=== PATIENT | male | born 1990 | race Caucasian/White ===

== ENCOUNTER 2017-03-01 14:45 | Emergency (ER) | payer SELFPAY ==
--- NOTE | 2017-03-01 15:15 | EDM.PDOC ---
ED HPI GENERAL MEDICAL PROBLEM - General Chief Complaint: Upper Extremity Injury/Pain Stated Complaint: RT SHOULDER INJURY Time Seen by Provider: 03/01/17 15:14 - History of Present Illness INITIAL COMMENTS - FREE TEXT/NARRATIVE: 26-year-old male comes to the emergency room for syncopal type episode and right shoulder injury. Shortly before arrival to the emergency department the patient became lightheaded and then passed out landing on his right shoulder. He quickly awoke and on his own but I witnessed a state that he became lightheaded then fell onto his right side. His blood sugar was checked at the scene and was 90. He had lunch about 15 minutes prior to this episode. The patient has not had problems like this in the past. His family history of diabetes type IIbut patient has not been having problems like this in the past. He has no family history of heart arrhythmia or people passing out. 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 He thinks he's been drinking adequate fluid. The patient did not have breakfast this morning but he seldom does. 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 [No Known Home Meds] 03/01/17 [History] Social & Family History - Tobacco Use Smoking Status *Q: Never Smoker - Caffeine Use Caffeine Use: Reports: Soda - Recreational Drug Use Recreational Drug Use: Yes Drug Use in Last 12 Months: Yes Recreational Drug Type: Reports: Marijuana/Hashish Recreational Drug Use Frequency: Socially Review of Systems - Review of Systems Review Of Systems: See Below Constitutional: Reports: No Symptoms Ears: Reports: No Symptoms Nose: Reports: No Symptoms Mouth/Throat: Reports: No Symptoms Respiratory: Reports: No Symptoms Cardiovascular: Reports: Syncope. Denies: Chest Pain, Edema GI/Abdominal: Reports: No Symptoms Genitourinary: Reports: No Symptoms Musculoskeletal: Reports: Shoulder Pain Skin: Reports: No Symptoms Neurological: Reports: Syncope. Denies: Confusion, Dizziness, Headache, Numbness, Paresthesia, Pre-Existing Deficit, Seizure, Tingling, Tremors, Trouble Speaking, Difficulty Walking, Weakness Psychiatric: Reports: No Symptoms Trauma Exam - Physical Exam Exam: See Below Exam Limited By: No Limitations General Appearance: Reports: Alert, No Apparent Distress Head: Reports: Atraumatic, Normocephalic. Denies: Scalp Lacerations, Scalp Swelling, Scalp Abrasions, Scalp Ecchymosis, Scalp Hematoma, Scalp Tenderness, Mayer's Sign, Facial Abrasions, Facial Ecchymosis, Facial Lacerations, Facial Swelling, Sinus Tenderness, Facial Tenderness, [place]accoon Eyes Eyes: Bilateral Eye: EOMI, Normal Inspection, PERRL Ears: Reports: Normal External Exam, Normal Canal, Hearing Grossly Normal, Normal TMs Nose: Reports: Normal Inspection, Normal Mucousa, No Blood Neck: Reports: Non-Tender, Full Range of Motion, Normal Alignment, Normal Inspection Respiratory Exam: Reports: No Respiratory Distress, Lungs Clear, Normal Breath Sounds Cardiovascular: Reports: Regular Rate, Rhythm, No Edema, No Murmur GI/Abdominal: Reports: Normal Bowel Sounds, Soft, Non-Tender Back: Reports: Full Range of Motion. Denies: Normal Inspection, CVA Tenderness (R), CVA Tenderness (L), Muscle Spasm, Vertebral Tenderness Extremities: Other (he has some right shoulder discomfort with some distal clavicle discomfort neurovascular status of the hand is normal) Neurologic: Reports: bag filler II-XII nml As Tested, No Motor/Sensory Deficits, Normal Mood/Affect, Oriented x 3, Other (neuro exam limited somewhat because of shoulder pain). Denies: Abnormal Cerebellar Tests, Abnormal Gait, Aphasia, Facial Droop, Motor Weakness, Sensory Deficit Skin: Reports: Normal Color, Warm/Dry - [place] Coma Score Best Eye Response ([place]): (4) Open Spontaneously Best Verbal Response ([place]): (5) Oriented Best Motor Response ([place]): (6) Obeys Commands EKG INTERPRETATION EKG Date: 03/01/17 Rhythm: other (has a sinus arrhythmia) [place]: normal P-wave: present QRS: normal ST-T: normal QT: normal Comparison: NA - no prior EKG EKG Interpretation Comments: patient has been watched on the monitor he has a sinus arrhythmia no other ectopy EKG otherwise normal Course - Vital Signs Last Recorded V/S: Last Vital Signs Temp 36.4 C 03/01/17 15:03 Pulse 74 03/01/17 15:03 Resp 18 03/01/17 15:03 BP 123/74 03/01/17 15:03 Pulse Ox 100 03/01/17 15:03 - Orders/Labs/Meds Orders: Active Orders 24 hr Category Date Time Status EKG 12 Lead [EKG Documentation Completion] [RC] STAT Care 03/01/17 18:25 Active Clavicle Rt [CR] Stat Exams 03/01/17 15:39 Taken Shoulder Comp Rt [CR] Stat Exams 03/01/17 15:39 Taken Labs: Laboratory Tests 03/01/17 03/01/17 Range/Units 15:50 15:50 WBC 11.60 H (4.23-9.07) K/mm3 RBC 4.28 L (4.63-6.08) M/mm3 Hgb 13.4 L (13.7-17.5) gm/L Hct 38.7 L (40.1-51.0) % MCV 90.4 (79.0-92.2) fl MCH 31.3 (25.7-32.2) pg MCHC 34.6 (32.2-35.5) g/dl RDW Std Deviation 42.6 (35.1-43.9) fL Plt Count 194 (163-337) K/mm3 MPV 11.1 (9.4-12.3) fl Neutrophils % (Manual) 75 H (40-60) % Band Neutrophils % 0 (0-10) % Lymphocytes % (Manual) 22 (20-40) % Atypical Lymphs % 0 % Monocytes % (Manual) 3 (2-10) % Eosinophils % (Manual) 0 L (0.8-7.0) % Basophils % (Manual) 0 L (0.2-1.2) Platelet Estimate Adequate Plt Morphology Comment Normal RBC Morph Comment Normal Sodium 142 (136-145) mEq/L Potassium 3.9 (3.5-5.1) mEq/L Chloride 108 H (98-107) mEq/L Carbon Dioxide 29 (21-32) mEq/L Anion Gap 8.9 (5-15) BUN 10 (7-18) mg/dL Creatinine 0.9 (0.7-1.3) mg/dL Est Cr Clr Drug Dosing 155.38 mL/min Estimated GFR (MDRD) > 60 (>60) mL/min BUN/Creatinine Ratio 11.1 L (14-18) Glucose 84 (74-106) mg/dL Calcium 9.3 (8.5-10.1) mg/dL Magnesium 1.6 L (1.8-2.4) mg/dl Meds: Medications Discontinued Medications Generic Name Dose Route Start Last Admin Trade Name Rashaad PRN Reason Stop Dose Admin Lactated Ringer's 1,000 mls @ 999 mls/hr 03/01/17 15:33 03/01/17 15:56 Ringers, Lactated IV 03/01/17 16:33 999 mls/hr .BOLUS ONE Administration - Re-Assessments/Exams Free Text/Narrative Re-Assessment/Exam: 03/01/17 18:27 this patient has received a liter of fluid and feels much better. His arm is a little sore x-ray exam of the clavicle and shoulder are negative for acute fracture dislocation cannot exclude a mild a.c. separation and his exam is consistent with this. Patient will be placed in a sling. For evaluation for his near syncopal or syncopal event laboratory evaluation is unrevealing he has a sinus arrhythmia which is probably normal given his age and telemetry does not show any tachycardia or prolonged bradycardia did discuss a Holter monitor he would like to hold off on this. His white count slightly elevated 75% segs no bands this could be a stress reaction. Chemistries magnesium for low 1.6 he will start [id number] magnesium supplements and is willing to followup in the clinic Departure - Departure Time of Disposition: 18:29 Disposition: Home, Self-Care 01 Clinical Impression: Syncope and collapse, Acromioclavicular separation, type 1 - Discharge Information Forms: ED Department Discharge Additional Instructions: return to the emergency room if any questions or problems. 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 Followup in the hospital clinic early next week. [id number]. Wear the sling to help support your arm to minimize shoulder discomfort where as needed. - My Orders Last 24 Hours: My Active Orders 03/01/17 15:39 Clavicle Rt [CR] Stat Shoulder Comp Rt [CR] Stat 03/01/17 18:25 EKG 12 Lead [EKG Documentation Completion] [RC] STAT - Assessment/Plan Last 24 Hours: My Active Orders 03/01/17 15:39 Clavicle Rt [CR] Stat Shoulder Comp Rt [CR] Stat 03/01/17 18:25 EKG 12 Lead [EKG Documentation Completion] [RC] STAT
[2017-03-01] MEDS ORDERED: Lactated Ringers 1,000 ML IV ONE (15:33)
[2017-03-01 19:05] VITALS: BP 124/86
--- NOTE | 2017-03-02 06:22 | CR ---
Right clavicle: Two views of the right clavicle were obtained. No fracture or other abnormality is seen. Impression: 1. No abnormality is seen on two-view right clavicle study. Diagnostic code #1
--- NOTE | 2017-03-02 06:22 | CR ---
Right shoulder: Three views of the right shoulder were obtained. Glenohumeral joint and acromioclavicular joint appear unremarkable. No fracture or other bony abnormality is seen. Impression: 1. No abnormality is identified on three-view right shoulder study. Diagnostic code #1
== END 2017-03-01 18:50 | disposition home or self-care (01) ==
LOC: JD.ED 14:45
DX: R55 Syncope and collapse (principal); S43.101A Unspecified dislocation of right acromioclavicular joint, initial encounter; Z88.8 Allergy status to other drugs, medicaments and biological substances; X58.XXXA Exposure to other specified factors, initial encounter
CPT/HCPCS: 36415; 73000; 73030; 80048; 83735; 85025; 93005; 96360; 96361; 99284; J7120; 99285

== ENCOUNTER 2020-03-22 13:51 | Emergency (ER) | payer OTHER ==
[2020-03-22 14:10] VITALS: BP 128/68; PULSE 76
[2020-03-22] MEDS ORDERED: Diphtheria,Pertussis(Acell),Tetanus Vaccine 0.5 ML Syringe IM ONE (14:36)
--- NOTE | 2020-03-22 15:12 | CR ---
Right hand: 4 views the right hand were obtained. Comparison: No prior hand study. Tuft fracture is seen within the fourth finger. No additional fracture or other bony abnormality is appreciated. Impression: 1. Tuft fracture within the fourth finger. 2. No additional abnormality is seen. Diagnostic code #2 Study was dictated in MDT
--- NOTE | 2020-03-22 15:13 | EDM.PDOC ---
ED HPI GENERAL MEDICAL PROBLEM - General Chief Complaint: Upper Extremity Injury/Pain Stated Complaint: RT HAND INJURY Time Seen by Provider: 03/22/20 14:33 Source of Information: Reports: Patient History Limitations: Reports: No Limitations - History of Present Illness INITIAL COMMENTS - FREE TEXT/NARRATIVE: The patient presents with right hand injury. This happened about 15 minutes prior to arrival. He was moving the forks on a fork lift and one of them crushed his right hand. He mostly got crushed on his 3rd and 4th finger. He does have a superficial laceration to the 4th finger. He has good sensation and capillary refill distally. He is right handed. His tetanus he is not sure if it is up to date. Onset: Sudden Duration: Minutes: Location: Reports: Upper Extremity, Right (hand) Quality: Reports: Sharp Severity: Moderate Improves with: Reports: Immobilization Worsens with: Reports: Movement Context: Reports: Trauma (crushed by forks on a fork lift) Associated Symptoms: Reports: No Other Symptoms Right Hand Pain Score (Numeric/FACES): 6 - Related Data Allergies Allergy/AdvReac Type Severity Reaction Status Date / Time diphenhydramine Allergy Severe Swelling Verified 03/22/20 14:03 [From Benadryl] Home Meds: Home Meds . [No Known Home Meds] 03/01/17 [History] Past Medical History - Past Health History Medical/Surgical History: Denies Medical/Surgical History Social & Family History - Family History Family Medical History: Noncontributory - Tobacco Use Smoking Status *Q: Former Smoker Used Tobacco, but Quit: Yes Month/Year Tobacco Last Used: 03/2015 - Caffeine Use Caffeine Use: Reports: Coffee, Energy Drinks, Soda, Tea - Recreational Drug Use Recreational Drug Use: Yes Drug Use in Last 12 Months: Yes Recreational Drug Type: Reports: Marijuana/Hashish Recreational Drug Use Frequency: Weekly Review of Systems - Review of Systems Review Of Systems: See Below Constitutional: Reports: No Symptoms Eyes: Reports: No Symptoms Ears: Reports: No Symptoms Nose: Reports: No Symptoms Mouth/Throat: Reports: No Symptoms Respiratory: Reports: No Symptoms Cardiovascular: Reports: No Symptoms GI/Abdominal: Reports: No Symptoms Genitourinary: Reports: No Symptoms Musculoskeletal: Reports: Other (right hand pain) ED EXAM, GENERAL - Physical Exam Exam: See Below Exam Limited By: No Limitations General Appearance: Alert, No Apparent Distress Ears: Normal External Exam Nose: Normal Inspection Head: Atraumatic, Normocephalic Neck: Normal Inspection Respiratory/Chest: No Respiratory Distress Extremities: Other (Pain upon palpation with edema to the right 3rd and 4th digits. The 4th digit has a superficial laceration that is about 0.25cm. Good sensation and capillary refill distally.) ED TRAUMA EXTREMITY PROCEDURES - Laceration/Wound Repair Right Digit - 4th (Ring) Lac/Wound Length In cm: 0.2 Appearance: Superficial, Irregular, Mildly Contaminated Distal NVT: Neuro & Vascular Intact, No Tendon Injury Skin Prep: Saline Closed With: Wound Adhesive - Splinting Right 4th Digit Splint Site: right 4th finger Pre-Procedure NV Status: Normal Post-Procedure NV Status: Normal Splint Material: Aluminum-Foam Splint Design: Extensor Applied & Form Fitted By: Provider Provider Post-Splint Application NV Check: NV Status Normal, Good Position Complications: No Course - Vital Signs Last Recorded V/S: Last Vital Signs Temp 96.6 F L 03/22/20 13:58 Pulse 76 03/22/20 13:58 Resp 16 03/22/20 13:58 BP 128/68 03/22/20 13:58 Pulse Ox 97 03/22/20 13:58 - Orders/Labs/Meds Orders: Active Orders 24 hr Category Date Time Status Vaccines to be Administered [RC] PER UNIT ROUTINE Care 03/22/20 14:36 Active Meds: Medications Discontinued Medications Generic Name Dose Route Start Last Admin Trade Name Freq PRN Reason Stop Dose Admin Diphtheria/Tetanus/Acell Pertussis 0.5 ml 03/22/20 14:36 03/22/20 15:10 Adacel IM 03/22/20 14:37 0.5 ml .ONCE ONE Administration - Re-Assessments/Exams Free Text/Narrative Re-Assessment/Exam: 03/22/20 15:13 I updated his tetanus and he has a distal phalynx fracture to the 4th digit. 03/22/20 15:23 I use adhesive to close the wound and I splinted the fracture with an aluminum splint. Departure - Departure Time of Disposition: 15:25 Disposition: Home, Self-Care 01 Condition: Good Clinical Impression: Laceration of right ring finger Qualifiers: Encounter type: initial encounter Damage to nail status: without damage Foreign body presence: without foreign body Qualified Code(s): S61.214A - Laceration without foreign body of right ring finger without damage to nail, initial encounter Finger fracture, right Qualifiers: Encounter type: initial encounter Finger: ring finger Fracture type: closed Phalanx: distal Fracture alignment: nondisplaced Qualified Code(s): S62.664A - Nondisplaced fracture of distal phalanx of right ring finger, initial encounter for closed fracture - Discharge Information *PRESCRIPTION DRUG MONITORING PROGRAM REVIEWED*: Not Applicable *COPY OF PRESCRIPTION DRUG MONITORING REPORT IN PATIENT CAPRI: Not Applicable Referrals: PCP,None [Primary Care Provider] - Forms: ED Department Discharge Additional Instructions: The adhesive should wear off within a week to 10 days. Ice your finger for 15 minutes 3 times per day for 2 days. Take tylenol or motrin for pain. Wear the splint for a couple weeks. Please return if you are worse. Sepsis Event Note (ED) - Evaluation Sepsis Screening Result: No Definite Risk - Focused Exam Vital Signs: Vital Signs Temp Pulse Resp BP Pulse Ox 03/22/20 13:58 96.6 F L 76 16 128/68 97 - My Orders Last 24 Hours: My Active Orders 03/22/20 14:36 Vaccines to be Administered [RC] PER UNIT ROUTINE - Assessment/Plan Last 24 Hours: My Active Orders 03/22/20 14:36 Vaccines to be Administered [RC] PER UNIT ROUTINE
== END 2020-03-22 15:50 | disposition home or self-care (01) ==
LOC: JD.ED 13:51
DX: S62.664A Nondisplaced fracture of distal phalanx of right ring finger, initial encounter for closed fracture (principal); S61.214A Laceration without foreign body of right ring finger without damage to nail, initial encounter; Z23 Encounter for immunization; Z87.891 Personal history of nicotine dependence; Z88.8 Allergy status to other drugs, medicaments and biological substances; W24.0XXA Contact with lifting devices, not elsewhere classified, initial encounter
CPT/HCPCS: 12001; 73130-26-RT; 73130-RT; 90471; 90715; 99282; 99283-25

== ENCOUNTER 2022-04-23 06:48 | Emergency (ER) | payer BC ==
[2022-04-23 07:32] VITALS: BP 122/84; PULSE 50
== END 2022-04-23 08:24 | disposition home or self-care (01) ==
LOC: JD.ED 06:48
DX: K04.7 Periapical abscess without sinus (principal); K03.81 Cracked tooth; Z88.8 Allergy status to other drugs, medicaments and biological substances
CPT/HCPCS: 64400; 99282-25; 99283

== ENCOUNTER 2024-04-29 08:53 | Emergency (ER) | payer BC ==
[2024-04-29 20:06] VITALS: BP 125/86; PULSE 65
== END 2024-04-29 12:10 | disposition home or self-care (01) ==
LOC: JD.ED 08:53
DX: S39.011A Strain of muscle, fascia and tendon of abdomen, initial encounter (principal); Z88.8 Allergy status to other drugs, medicaments and biological substances; Z79.899 Other long term (current) drug therapy; X58.XXXA Exposure to other specified factors, initial encounter
CPT/HCPCS: 71101-26-LT; 71101-LT; 99282; 99284

== ENCOUNTER 2024-07-12 16:56 | Emergency (ER) | payer BC ==
[2024-07-12] MEDS ORDERED: Sodium Chloride 0.9% 10 ML Syringe FLUSH PRN (17:22)
[2024-07-12 18:14] LABS: BASOPHILS PERCENT AUTO 0.3 % (0.0-1.0); EOSINOPHILS ABSOLUTE AUTO 0.1 K/mm3 (0.0-0.4); EOSINOPHILS PERCENT AUTO 0.6 % (0.0-6.0); HEMATOCRIT 40.3 % (42.0-52.0); HEMOGLOBIN 13.9 gm/dl (14.0-18.0); IMMATURE GRAN ABSOLUTE AUTO 0.02 K/mm3 (0.00-0.05); IMMATURE GRAN PERCENT AUTO 0.1 % (0.0-0.4); LYMPHOCYTES ABSOLUTE AUTO 1.8 K/mm3 (1.0-4.8); LYMPHOCYTES PERCENT AUTO 13.1 % (24.0-44.0); MEAN CORPUSCULAR HEMOGLOBIN 31.9 pg (28.0-32.0); MEAN CORPUSCULAR HGB CONC 34.5 g/dl (32.0-36.0); MEAN CORPUSCULAR VOLUME 92.4 fl (83.0-99.0); MEAN PLATELET VOLUME 10.7 fl (9.4-12.4); MONOCYTES ABSOLUTE AUTO 0.9 K/mm3 (0.0-0.8); MONOCYTES PERCENT AUTO 6.4 % (0.0-8.0); NEUTROPHILS ABSOLUTE AUTO 10.8 K/mm3 (1.8-7.7); NEUTROPHILS PERCENT AUTO 79.5 % (41.0-71.0); PLATELET COUNT,PLT 212 K/mm3 (150-400); RED BLOOD CELL COUNT 4.36 M/mm3 (4.52-5.90); WHITE BLOOD CELL COUNT,WBC 13.63 K/mm3 (3.9-11.3)
[2024-07-12 18:38] LABS: LACTIC ACID 1.3 mmol/L (0.4-2.0)
[2024-07-12 18:44] LABS: A/G RATIO 1.3 (1-2); ANION GAP 10.7 (5-15); BILIRUBIN TOTAL 0.3 mg/dL (0.2-1.0); BUN/CREATININE RATIO 17.5 (14-18); C-REACTIVE PROTEIN 0.07 mg/dL (<0.30); CALCIUM 9.7 mg/dL (8.5-10.1); CREATININE 0.8 mg/dL (0.7-1.3); EST CRCL DRUG DOSING (CG) 154.13 mL/min; MAGNESIUM 1.6 mg/dL (1.8-2.4); POTASSIUM,K 4.7 mEq/L (3.5-5.1); PROTEIN TOTAL,TP 7.1 g/dl (6.4-8.2); TSH 1.033 uIU/mL (0.358-3.74)
[2024-07-12 19:54] LABS: APPEARANCE,URINE CLOUDY (Clear); BILIRUBIN,URINE NEGATIVE (Negative); COLOR,URINE YELLOW (Yellow); GLUCOSE,URINE NEGATIVE (Negative); KETONES,URINE NEGATIVE (Negative); LEUKOCYTE ESTERASE,URINE NEGATIVE (Negative); NITRITE,URINE NEGATIVE (Negative); OCCULT BLOOD,URINE TRACE-INTACT (Negative); PROTEIN,URINE NEGATIVE (Negative); UROBILINOGEN,URINE 0.2 (0.2-1.0)
[2024-07-12 20:06] LABS: BARBITURATE SCREEN,URINE NEGATIVE (CUTOFF=200); BENZODIAZEPINES SCREEN,URINE NEGATIVE (CUTOFF=150); BUPRENORPHINE SCREEN,URINE NEGATIVE (CUTOFF=10); METHADONE SCREEN, URINE NEGATIVE (CUT0FF=200); METHAMPHETAMINES SCREEN, URINE NEGATIVE (CUTOFF=500); OXYCODONE SCREEN,URINE NEGATIVE (CUT0FF=100); THC SCREEN,URINE 20 NG/ML PRESUMPTIVE POSITIVE (CUTOFF=50)
[2024-07-12 20:07] VITALS: BP 114/71; PULSE 50
[2024-07-12 20:11] LABS: AMPHETAMINES SCREEN, URINE PRESUMPTIVE POSITIVE (CUTOFF=500)
[2024-07-12 20:16] LABS: AMORPHOUS SEDIMENT,URINE MANY /hpf (NOT SEEN); BACTERIA,URINE FEW /hpf (FEW); EPITHELIAL CELLS,URINE NOT SEEN /hpf (0-5); FINE GRANULAR CASTS,URINE 0-5 /lpf (0-5); MUCUS,URINE NOT SEEN /hpf (FEW); RBC,URINE 0-5 /hpf (0-5); WBC,URINE 0-5 /hpf (0-5)
== END 2024-07-12 20:06 | disposition home or self-care (01) ==
LOC: JD.ED 16:56
DX: R40.4 Transient alteration of awareness (principal); Z88.8 Allergy status to other drugs, medicaments and biological substances
CPT/HCPCS: 36415; 70450; 70450-26; 80053; 80306; 80307; 81001; 83605; 83735; 84443; 84484; 85025; 86140; 93005; 99285